=== PATIENT | female | born 1995 | race Caucasian/White ===

== ENCOUNTER 2018-01-09 22:15 | Observation (INO) ==
[2018-01-09] MEDS ORDERED: hydrOXYzine pamoate 25 MG CAPSULE PO PRN (23:06)
[2018-01-09 23:18] LABS: Basophils % 0.3 %; Eosinophils # 0.2 K/mcL (0.0-0.6); Eosinophils % 2.1 %; Hemoglobin 11.7 g/dL (11.5-15.4); Immature Granulocytes % 1.8 % (0-4); Lymphocytes # 1.8 K/mcL (0.6-4.6); Lymphocytes % 19.1 %; Mean Corpuscular HGB Conc 33.4 g/dL (31.6-35.5); Mean Corpuscular Hemoglobin 30.2 pg (28.0-33.3); Mean Corpuscular Volume 90.2 fL (83.0-100.0); Mean Platelet Volume 9.4 fL (9.4-12.4); Monocytes # 0.9 K/mcL (0.0-1.3); Monocytes % 9.6 %; Neutrophils # 6.4 K/mcL (1.6-8.9); Platelet Count 289 K/mcL (140-400); Red Blood Count 3.88 M/mcL (3.82-4.97); Red Cell Distribution Width 12.5 % (11.5-14.5); Segmented Neutrophils % 67.1 %
[2018-01-09 23:20] LABS: Bilirubin,Urine Negative (Negative); Blood,Urine Negative (Negative); Clarity,Urine Clear (Clear); Color,Urine Yellow (Yellow); Glucose,Urine (UA) Normal (Normal); Ketones,Urine Negative (Negative); Leukocyte Esterase,Urine Negative (Negative); Nitrite,Urine Negative (Negative); Protein,Urine Negative (Neg-Trace); Specific Gravity,Urine < 1.005 (1.010-1.025); Urobilinogen,Urine Normal (Normal)
--- NOTE | 2018-01-09 23:30 | OB/GYN Progress Note ---
Date of Encounter: 01/09/18 Time of Encounter: 23:20 - Assessment and Plan (1) 33 weeks gestation of Current Visit: Yes Status: Acute (2) uterine contractions in third trimester, antepartum Current Visit: Yes Status: Acute SVE closed (3) Hypertension affecting in third trimester Current Visit: Yes Status: Acute Pt reporting significant anxiety at this time because of the pain she was having earlier. Will try vistaril for anxiety while awaiting PIH lab results. Will restart labetalol if needed. Subjective - Subjective Principal diagnosis: cramping Interval history: 22 year-old presenting at 33 weeks with c/o cramping pain in left lower abdomen. She reports her abdomen gets hard when she has the pain. She admits to intercourse yesterday. No leaking or bleeding. Good FM. She has a history of chronic HTN which has been well controlled without medication during this . She also admits a history of anxiety and states she is feeling anxious now. She denies HILLMAN, vision changes, or RUQ pain. Antepartum ROS: movement normal, contractions, no loss of fluid, no vaginal bleeding Objective - Vital Signs Vital Signs: Intake and Output 01/09/18 01/09/18 01/09/18 07:59 15:59 23:59 Other: Weight 86.5 kg Patient Weight 01/09/18 23:59 Weight 86.5 kg - Exam FHR: category 1 FHR comments: NST reactive Abdomen: Present: soft, gravid Uterus: Present: normal. Absent: tenderness Cervical dilation: 0 station: high
[2018-01-09 23:45] LABS: Alanine Aminotransferase 26 Units/L (7-52); Aspartate Amino Transferase 20 Units/L (13-39); BUN/Creatinine Ratio 12 (6-26); Blood Urea Nitrogen 5 mg/dL (6-20); Lactate Dehydrogenase 154 Units/L (140-271); Uric Acid 4.3 mg/dL (2.3-7.6); eGFR For African Americans > 60 (> 60); eGFR For Non-African Americans > 60 (> 60)
[2018-01-09 23:45] LABS: Creatinine,Urine 14 mg/dL
[2018-01-09] MEDS ORDERED: *HR* Labetalol 20 MG/4 ML SYRINGE IVP ONE (23:52)
== END 2018-01-10 07:28 | disposition home or self-care (01) ==
LOC: 1NENULAB
PROVIDERS: ADMIT Registered Nurse; ATTEND Registered Nurse

== ENCOUNTER 2018-01-27 21:49 | Observation (INO) ==
[2018-01-27 22:44] LABS: Alanine Aminotransferase 19 Units/L (7-52); Aspartate Amino Transferase 17 Units/L (13-39); BUN/Creatinine Ratio 12 (6-26); Blood Urea Nitrogen 6 mg/dL (6-20); Creatinine,Urine 26 mg/dL; Lactate Dehydrogenase 158 Units/L (140-271); Protein/Creatinine Ratio,Urine 0.15 mg/mg (0.00-0.20); Uric Acid 4.7 mg/dL (2.3-7.6); eGFR For African Americans > 60 (> 60); eGFR For Non-African Americans > 60 (> 60)
[2018-01-27 22:54] LABS: Basophils # 0.1 K/mcL (0.0-0.2); Basophils % 0.4 %; Eosinophils # 0.3 K/mcL (0.0-0.6); Hematocrit 36.3 % (35.3-44.9); Hemoglobin 12.4 g/dL (11.5-15.4); Immature Granulocytes % 2.2 % (0-4); Lymphocytes # 2.2 K/mcL (0.6-4.6); Lymphocytes % 13.3 %; Mean Corpuscular HGB Conc 34.2 g/dL (31.6-35.5); Mean Corpuscular Hemoglobin 30.7 pg (28.0-33.3); Mean Corpuscular Volume 89.9 fL (83.0-100.0); Mean Platelet Volume 10.1 fL (9.4-12.4); Monocytes # 1.4 K/mcL (0.0-1.3); Monocytes % 8.2 %; Neutrophils # 12.2 K/mcL (1.6-8.9); Platelet Count 313 K/mcL (140-400); Red Blood Count 4.04 M/mcL (3.82-4.97); Red Cell Distribution Width 12.9 % (11.5-14.5); Segmented Neutrophils % 73.9 %
--- NOTE | 2018-01-27 23:28 | Discharge Summary ---
Date of Encounter: 01/27/18 Time of Encounter: 23:27 - Discharge Diagnosis (1) 36 weeks gestation of Priority: Primary Status: Acute Comments: admitted for observation (2) Hypertension affecting in third trimester Priority: Secondary Status: Acute Comments: PIH labs WNL BPs WNL (3) NST (non-stress test) reactive on surveillance Priority: Secondary Status: Acute Comments: baseline 130 bpm moderate variability +15x15 accels no decels noted. - Discharge Medications Home Medications: [id number]/FA/Omega3/Dha/Fish Oil [ Gummies] 1 each PO 12/04/17 [History] Ondansetron HCl [Zofran] 1 tab PO DAILY 01/09/18 [History] HydrOXYzine Pamoate [Vistaril] 50 mg PO DAILY PRN #30 capsule 01/10/18 [Rx] Allergies/Adverse Reactions: 3 Allergy/AdvReac Type Severity Reaction Status Date / Time cefuroxime [From Ceftin] Allergy Rash Verified 10/29/17 19:08 Penicillins Allergy Rash Verified 10/29/17 19:08 Data Procedures and tests throughout hospitalization: Laboratory Tests 01/27/18 01/27/18 01/27/18 22:00 22:00 22:00 WBC 16.5 H RBC 4.04 Hgb 12.4 Hct 36.3 MCV 89.9 MCH 30.7 MCHC 34.2 RDW 12.9 Plt Count 313 MPV 10.1 Immature Gran % 2.2 Seg Neutrophils % 73.9 Lymphocytes % 13.3 Monocytes % 8.2 Eosinophils % 2.0 Basophils % 0.4 Neutrophils # 12.2 H Lymphocytes # 2.2 Monocytes # 1.4 H Eosinophils # 0.3 Basophils # 0.1 BUN 6 Creatinine 0.51 L Est GFR ( Amer) > 60 Est GFR (Non-Af Amer) > 60 BUN/Creatinine Ratio 12 Uric Acid 4.7 AST 17 ALT 19 Lactate Dehydrogenase 158 Urine Creatinine 26 Protein/Creatinin Ratio 0.15 Urine Total Protein 4 Labs on day of discharge: Labs from last 24 hours 01/27/18 01/27/18 01/27/18 22:00 22:00 22:00 WBC 16.5 H RBC 4.04 Hgb 12.4 Hct 36.3 MCV 89.9 MCH 30.7 MCHC 34.2 RDW 12.9 Plt Count 313 MPV 10.1 Immature Gran % 2.2 Seg Neutrophils % 73.9 Lymphocytes % 13.3 Monocytes % 8.2 Eosinophils % 2.0 Basophils % 0.4 Neutrophils # 12.2 H Lymphocytes # 2.2 Monocytes # 1.4 H Eosinophils # 0.3 Basophils # 0.1 BUN 6 Creatinine 0.51 L Est GFR ( Amer) > 60 Est GFR (Non-Af Amer) > 60 BUN/Creatinine Ratio 12 Uric Acid 4.7 AST 17 ALT 19 Lactate Dehydrogenase 158 Urine Creatinine 26 Protein/Creatinin Ratio 0.15 Urine Total Protein 4 Date of admission: 01/27/18 21:49 Discharging clinician: Brook Casanova Anticipated date of discharge: 01/27/18 - Patient Status Disposition: Home, Self-Care Condition: Good Functional capacity at discharge: independent ambulation - Discharge Instructions Follow Up With: Beatrice Rodarte DO [Partnered Physician] - - Diet and Activity Activity: increase activity as tolerated Diet: regular diet Hospital Course FRUIT FARMWORKER Hospital course: Patient is a 22 y/o @ 36w2d presents to labor and delivery with complaints of elevated BPs at home. Patient denies any headache, visual disturbances or epigastric pain. Patient reports +FM, denies Contractions or leaking of fluid. FHR 130 bpm moderate variability +15x15 accels no decels noted.. Irregular contractions noted. Cat. 1 tracing. Time Attestation: Total time spent providing and/or coordinating discharge services: Time Spent: Less than 30 minutes Exam - Constitutional General appearance IM: A&O X 3, pleasant, answers questions appropriately - Respiratory Respiratory exam: Present: CTAB - Cardiovascular Cardiovascular exam IM: Present: RRR, +S1, +S2 - Extremities Exam Extremities exam IM: Present: full ROM, normal capillary refill - Neurological Exam Neurological exam: alert, oriented X3, reflexes normal - VTE Reasons for not Prescribing Prophylaxis: Treatment not Indicated - Low risk for VTE
[2018-01-28 00:39] LABS: Amphetamine Screen,Urine Negative ng/mL (Cutoff=1000); Barbiturate Screen,Urine Negative ng/mL (Cutoff=200); Benzodiazepines Screen,Urine Negative ng/mL (Cutoff=200); Cannabinoid Screen,Urine Negative ng/mL (Cutoff = 50); Cocaine Screen,Urine Negative ng/mL (Cutoff= 300); Opiate Screen,Urine Negative ng/mL (Cutoff=300); Phencyclidine Screen,Urine Negative ng/mL (Cutoff=25)
== END 2018-01-27 23:35 | disposition home or self-care (01) ==
LOC: 1NENULAB
PROVIDERS: ADMIT Student in an Organized Health Care Education/Training Program; ATTEND Student in an Organized Health Care Education/Training Program

== ENCOUNTER 2018-02-02 17:32 | Inpatient (IN) ==
[2018-02-02 16:39] LABS: Basophils % 0.3 %; Eosinophils # 0.3 K/mcL (0.0-0.6); Eosinophils % 2.2 %; Hematocrit 39.8 % (35.3-44.9); Hemoglobin 13.1 g/dL (11.5-15.4); Immature Granulocytes % 1.6 % (0-4); Lymphocytes # 1.6 K/mcL (0.6-4.6); Lymphocytes % 12.1 %; Mean Corpuscular HGB Conc 32.9 g/dL (31.6-35.5); Mean Corpuscular Hemoglobin 30.2 pg (28.0-33.3); Mean Corpuscular Volume 91.7 fL (83.0-100.0); Monocytes # 0.8 K/mcL (0.0-1.3); Monocytes % 6.3 %; Neutrophils # 10.1 K/mcL (1.6-8.9); Nucleated Red Blood Cells 0.3 /100 WBC (0); Platelet Count 282 K/mcL (140-400); Red Blood Count 4.34 M/mcL (3.82-4.97); Red Cell Distribution Width 13.2 % (11.5-14.5); Segmented Neutrophils % 77.5 %
--- NOTE | 2018-02-02 17:01 | OB/GYN History & Physical ---
Date of Encounter: 02/02/18 Time of Encounter: 17:40 Assessment and Plan (1) Chronic hypertension during Current visit: Yes Status: Acute Gestational HTN GBS negative Admit to LDR for Pitocin induction of labor Current exam not indicative for seizure prophylaxis at this time, will monitor for signs/symptoms of Pre-eclampsia POC discussed with Dr. Rodarte, Dr. Rodarte agreeable to POC (2) 37 weeks gestation of Current visit: Yes Status: Acute History of Present Illness Chief complaint: Increased BP in office HPI: Ms. Kirkpatrick is a 22 year old at 37 weeks and 1 day gestation that presents to Labor and Delivery for evaluation of BP 180/110 in office today. Denies HILLMAN, visual disturbance and epigastric pain. Reports good movement, no vaginal bleeding, no leaking of fluid. POC discussed, supportive at bedside. Labs: A positive Antibody screen negative GBS negative HBsAg negative HIV negative Rubella immune Varicella immune GC/Chlamydia negative T. pallidium negative Past Med Surg Social Fam HX - Past Medical History Medical history: hypertension Psychiatric history: no psych history - Past Surgical History Surgical History: no surgical history - Social History Smoking Status: Never smoker Smokeless Tobacco Status: No Alcohol use: none Drug use: none - Family History Father Adopted: No Family Member Ethnicity: Non- Living Status: Still Living Hx Family Cardiac Disorders: Yes Hx Family Respiratory Disorders: No Hx Family Cancer: No Hx Family GI Disorders: No Hx Family Genitourinary Disorders: No Hx Family Endocrine Disorder: Yes Hx Family Neuromuscular Disorders: No Hx Family Neurologic Disorders: No Hx Family HEENT Disorders: No Hx Family Autoimmune Disorders: No Obstetrical History - Pregnancies : 1 Medications and Allergies [id number]/FA/Omega3/Dha/Fish Oil [ Gummies] 1 each PO 12/04/17 [History] Ondansetron HCl [Zofran] 1 tab PO DAILY 01/09/18 [History] HydrOXYzine Pamoate [Vistaril] 50 mg PO DAILY PRN #30 capsule 01/10/18 [Rx] 3 Allergy/AdvReac Type Severity Reaction Status Date / Time cefuroxime [From Ceftin] Allergy Rash Verified 10/29/17 19:08 Penicillins Allergy Rash Verified 10/29/17 19:08 Exam - Constitutional Constitutional: well developed, well nourished, no acute distress, average body habitus - HEENT HEENT: Normocephaly - Neck Neck exam: full ROM - Lungs Respiratory exam: CTAB - Cardiovascular Cardiovascular exam: RRR - Abdomen Abdomen: Present: bowel sounds normal - Extremities Extremities exam: full ROM, pedal edema, radial pulses palpable and symmetrical Deep Tendon Reflex Grade: 3+ Normal But Brisk - Cervix Dilation: 1 (per Dr. Rodarte in office today) Effacement: 90 Station: 0 - Uterus Uterus exam: Present: normal size, normal contour Results Result Diagrams: 02/02/18 16:18 02/02/18 16:18 Abnormal lab results WBC 13.1 K/mcL (4.3-11.1) H 02/02/18 16:18 Neutrophils # 10.1 K/mcL (1.6-8.9) H 02/02/18 16:18 Nucleated RBCs/100 WBC 0.3 /100 WBC (0) H 02/02/18 16:18 All other labs normal. - VTE Reasons for not Prescribing Prophylaxis: Treatment not Indicated - Low risk for VTE
[2018-02-02 17:03] LABS: Amphetamine Screen,Urine Negative ng/mL (Cutoff=1000); Barbiturate Screen,Urine Negative ng/mL (Cutoff=200); Benzodiazepines Screen,Urine Negative ng/mL (Cutoff=200); Cannabinoid Screen,Urine Negative ng/mL (Cutoff = 50); Cocaine Screen,Urine Negative ng/mL (Cutoff= 300); Opiate Screen,Urine Negative ng/mL (Cutoff=300); Phencyclidine Screen,Urine Negative ng/mL (Cutoff=25); Protein/Creatinine Ratio,Urine 0.17 mg/mg (0.00-0.20)
[2018-02-02 17:29] LABS: Alanine Aminotransferase 18 Units/L (7-52); Aspartate Amino Transferase 23 Units/L (13-39); BUN/Creatinine Ratio 17 (6-26); Blood Urea Nitrogen 9 mg/dL (6-20); Lactate Dehydrogenase 270 Units/L (140-271); Uric Acid 5.5 mg/dL (2.3-7.6); eGFR For African Americans > 60 (> 60); eGFR For Non-African Americans > 60 (> 60)
[~2018-02-02 17:32] MED LIST: *HR* Labetalol 20 MG/4 ML SYRINGE IVP PRN; *HR* Nalbuphine 10 MG/ML AMPUL IVP PRN; Famotidine 20 MG/2 ML VIAL IVP PRN; Lidocaine 1% 20 ML MDV INFILT PRN; Metoclopramide 10 MG/2 ML VIAL IVP PRN; Naloxone 0.4 MG/ML INJ IVP PRN; Ondansetron 4 MG/2 ML VIAL IVP PRN
[2018-02-02] MEDS ORDERED: Oxytocin 20 units/ LR 1000 mL 20 UNIT/1,000 ML BAG IVC SCH (17:45)
--- NOTE | 2018-02-02 17:55 | Anesthesia Evaluation PreOp ---
Date of Encounter: 02/02/18 Time of Encounter: 17:53 - Past History Planned Operation: vaginal del, G1 induction d/t HTN Cardiac History: HTN (chronic, in office 180/110, denies HILLMAN, visual dis, or abd pain. no meds, occ syncope episodes - none for years, no work up done. 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 HX Other Medical History: Denies Any Significant HX Anesthesia History: No Prior Anesthetic Complications, Past Anesthesia Alcohol Use: none Drug use: none Medications and Allergies [id number]/FA/Omega3/Dha/Fish Oil [ Gummies] 1 each PO 12/04/17 [History] Ondansetron HCl [Zofran] 1 tab PO DAILY 01/09/18 [History] HydrOXYzine Pamoate [Vistaril] 50 mg PO DAILY PRN #30 capsule 01/10/18 [Rx] 3 Allergy/AdvReac Type Severity Reaction Status Date / Time cefuroxime [From Ceftin] Allergy Rash Verified 10/29/17 19:08 Penicillins Allergy Rash Verified 10/29/17 19:08 Anesthesia Results - Labs 02/02/18 16:18 02/02/18 16:18 Anesthesia Exam - HEENT Pupil (Motor): Pupils equal Mallampati: III Teeth: Normal Oral Opening: Greater than 3 - WINDING INSPECTOR LOC: Oriented WINDING INSPECTOR Motor: Normal RUE, Normal LUE, Normal RLE, Normal LLE, Normal Face WINDING INSPECTOR Sensory: Normal: RUE, LUE, RLE, LLE, Face - Cardiac Rhythm: Regular Murmur: None - Pulmonary Breath Sounds: bilateral Clear Respiratory Effort: Symmetrical Anesthesia Assess/Plan ASA Score: 2 Modified [employer] Scale for Level of Consciousness: Cooperative, oriented, and tranquil Anesthetic Plan: General, Regional Monitoring Plan: Standard Monitors Recovery Plan: PACU
[2018-02-02] MEDS ORDERED: Epidural Premix (fent/bupiv) 110 ML EP SCH (18:00)
[2018-02-02] MEDS: Ringers Solution, Lactated 1,000 ML IVC SCH (18:07)
[2018-02-03] MEDS: Ringers Solution, Lactated 1,000 ML IVC SCH (00:39)
[2018-02-03] MEDS ORDERED: Epidural Premix (fent/bupiv) 110 ML EP ONE ×2 (09:42→15:08)
--- NOTE | 2018-02-03 10:02 | OB Labor Progress Note ---
Date of Encounter: 02/03/18 Time of Encounter: 09:25 Labor Progress Note - Subjective Subjective: Patient is bed and reports pain is getting worse. Discussed POC with patient. Patient denies any questions or concerns. - Cervix Cervix: 3/90/0 - Heart Tones Heart Tones: 120 bpm moderate amount of variability +15x15 accels no decels noted. Cat 1 tracing - [place]: 2-4 min apart - Interventions Interventions: SVE - Plan Plan: Stop Pitocin at this time Patient to get Epidural for pain management AROM and IUPC then reevaluated IOL medication
--- NOTE | 2018-02-03 10:10 | Anesthesia Procedures ---
Date of Encounter: 02/03/18 Time of Encounter: 10:08 Procedures: Anesthesia - Epidural/Spinal Patient ID/Chart reviewed: Yes Patient examined: Yes OB Eval: Gestational age: 37.1 OB Eval: : 1 OB Eval: Hx Para: 0 OB Eval: Dilated at (cm): 3 OB Eval: Contractions: Non-stressed pattern Consent Obtained: Yes Supplemental Oxygen: None/Room Air Site Prep: Aseptic Technique, Sterile prep and drape, Povidone-Iodine 1% Patient position: upright Local Anesthetic: Lidocaine 1% Amount of Local Anesthetic used: 3 Touhy Needle Gauge: 18 Touhy Needle Depth (cm): 9 Catheter Depth at Skin (cm): 20 Test Dose (1.5% Lido + Epi): Volume given (mls): 5 Test Dose Result: Negative Loading Dose: Other: 10mls of epidural pharm bag premix solution Loading Dose Administered: Thru Catheter Infusion Med: 0.125% Bupivacaine w/ 2 mcg/ml Fentanyl Infusion Rate (mls/hr): 16 (0nxj04mgc pcea) Catheter Secured in Place: Tegaderm, Tape Interspace Used: L4-L5 Loss of Resistance (KOMAL): Yes Blood: No CSF: No Paresthesia: No Procedure: pt tolerated procedure well. no complications. vss. fhr stable. see nursing notes for complete vitals. cath 0952 test 0953 bolus 0958
--- NOTE | 2018-02-03 10:41 | OB Labor Progress Note ---
Date of Encounter: 02/03/18 Time of Encounter: 10:39 Labor Progress Note - Subjective Subjective: Patient resting comfortably with epidural in place. - Cervix Cervix: 4/90/0 - Heart Tones Heart Tones: 120 bpm moderate amount of variability +15x15 accels no decels noted. Cat. 1 tracing - [place]: Irregular - Interventions Interventions: SVE, AROM moderate amount of clear fluid. IUPC placed without difficulty. Patient tolerated well. - Plan Plan: Restart Pitocin Continue labor management
--- NOTE | 2018-02-03 13:12 | OB Labor Progress Note ---
Date of Encounter: 02/03/18 Time of Encounter: 13:11 Labor Progress Note - Subjective Subjective: Patient resting comfortably with epidural in place. - Cervix Cervix: 5/100/0 - Heart Tones Heart Tones: 120 bpm moderate variability +15x15 accels no decels noted. Cat. 1 tracing - [place]: 3-4 min apart - Interventions Interventions: SVE. Repositioned patient - Plan Plan: Continue labor management.
--- NOTE | 2018-02-03 18:12 | OB/GYN Procedure Note ---
Delivery - Delivery Date: 02/03/18 Provider: Brook Casanova Delivery induction: AROM, oxytocin Delivery monitor: external FHT, external uterine, internal uterine Anesthesia: epidural Estimated Blood Loss: 300 - Infant (s) Infant A Infant Delivery Date: 02/03/18 Infant Delivery Time: 17:20 Presentation: vertex Position: JUDY Route of delivery: Gender: Female Viability: Viable Pounds: 6 Ounces: 9 Weight Gram: 2985 kg at 1 minute: 8 at 5 mins: 9 Shoulder Dystocia: not encountered Specimens collected: cord blood Placenta: spontaneous, uterine exploration Cord: 3 umbilical vessels - Repair Episiotomy: none Laceration Description: Perineal - 1st Degree, Labial (right labial) - Complications Delivery complications: none - Disposition Mom disposition: stable in LDR [place] disposition: stable in LDR - Comments Comments: Called to LDR patient complete and ready to push. Patient placed in stirrups and prepped for vaginal delivery. Under maternal effort patient spontaneously delivered a viable female over a first degree perineal laceration. No nuchal cord, no meconium or shoulder dystocia encountered. placed on maternal abdomen. A right labial was repaired with 4-0 monocryl. A first degree perineal laceration repaired with 3-0 vicryl. Cord was clamped and cut after pulsation ceased. Placenta delivered spontaneously and intact. All counts correct. Pericare provided. Both mother and infant stable in LDR for 2 hour recovery.
[2018-02-03] MEDS ORDERED: Acetaminophen 325 MG TABLET PO PRN (19:37)
[2018-02-03] MEDS ORDERED: Measles/Mumps/Rubella Vacc 0.5 ML VIAL SQ PRN (19:37)
[2018-02-03] MEDS ORDERED: *HR* HYDROcodone/Acet 5/325 mg TABLET PO PRN (19:37)
[2018-02-03] MEDS ORDERED: Oxytocin 20 units/ LR 1000 mL 20 UNIT/1,000 ML BAG IVC SCH (19:37)
[2018-02-03] MEDS ORDERED: Benzocaine/Menthol 56 GM AEROSOL SPRAY TP PRN (19:37)
[2018-02-03] MEDS ORDERED: Lanolin 7 G OINT...G. TP PRN (19:37)
[2018-02-03] MEDS: Ibuprofen 600 MG TABLET PO PRN (19:55)
[2018-02-04 04:29] LABS: Basophils % 0.3 %; Eosinophils # 0.2 K/mcL (0.0-0.6); Eosinophils % 1.2 %; Hematocrit 28.4 % (35.3-44.9); Immature Granulocytes % 0.9 % (0-4); Lymphocytes # 1.8 K/mcL (0.6-4.6); Lymphocytes % 11.9 %; Mean Corpuscular HGB Conc 34.2 g/dL (31.6-35.5); Mean Corpuscular Hemoglobin 30.7 pg (28.0-33.3); Mean Corpuscular Volume 89.9 fL (83.0-100.0); Mean Platelet Volume 10.1 fL (9.4-12.4); Monocytes # 1.3 K/mcL (0.0-1.3); Neutrophils # 11.3 K/mcL (1.6-8.9); Platelet Count 222 K/mcL (140-400); Red Blood Count 3.16 M/mcL (3.82-4.97); Red Cell Distribution Width 13.2 % (11.5-14.5); Segmented Neutrophils % 76.7 %
[2018-02-04 04:35] LABS: Hemoglobin 9.7 g/dL (11.5-15.4)
[2018-02-04 04:40] LABS: Alanine Aminotransferase 13 Units/L (7-52); Aspartate Amino Transferase 21 Units/L (13-39); BUN/Creatinine Ratio 12 (6-26); Blood Urea Nitrogen 7 mg/dL (6-20); Lactate Dehydrogenase 225 Units/L (140-271); Uric Acid 6.6 mg/dL (2.3-7.6); eGFR For African Americans > 60 (> 60); eGFR For Non-African Americans > 60 (> 60)
[2018-02-04] MEDS: Ibuprofen 600 MG TABLET PO PRN ×2 (08:46→15:24)
[2018-02-04 08:59] VITALS: BP 132/86
[2018-02-04] MEDS ORDERED: Prenatal Vit/FA 1 EACH TABLET PO SCH (09:00)
--- NOTE | 2018-02-04 09:22 | Discharge Summary ---
Date of Encounter: 02/04/18 Time of Encounter: 09:13 - Discharge Diagnosis (1) Vaginal delivery Priority: Primary Status: Acute Comments: Pt meeting milestones. Discharge home today. (2) Hypertension affecting in third trimester Priority: Secondary Status: Acute Comments: BP normal - Discharge Medications Prescriptions: Ibuprofen [Motrin] 600 mg PO Q6HR PRN #30 tablet PRN Reason: Cramping Docusate [Colace] 100 mg PO BID #60 capsule Home Medications: Benzocaine/Menthol [place] [Dermoplast [place]] 1 appl TP QID PRN aerosol 02/04/18 [Rx] Docusate [Colace] 100 mg PO BID #60 capsule 02/04/18 [Rx] Ibuprofen [Motrin] 600 mg PO Q6HR PRN #30 tablet 02/04/18 [Rx] Lanolin [Lansinoh] 1 appl TP TID PRN oint...g. 02/04/18 [Rx] Vit/FA 1 each PO DAILY tablet 02/04/18 [Rx] Allergies/Adverse Reactions: 3 Allergy/AdvReac Type Severity Reaction Status Date / Time cefuroxime [From Ceftin] Allergy Rash Verified 10/29/17 19:08 Penicillins Allergy Rash Verified 10/29/17 19:08 Data Procedures and tests throughout hospitalization: Laboratory Tests 02/02/18 02/02/18 02/02/18 16:18 16:18 16:18 WBC 13.1 H RBC 4.34 Hgb 13.1 Hct 39.8 MCV 91.7 MCH 30.2 MCHC 32.9 RDW 13.2 Plt Count 282 MPV 10.0 Immature Gran % 1.6 Seg Neutrophils % 77.5 Lymphocytes % 12.1 Monocytes % 6.3 Eosinophils % 2.2 Basophils % 0.3 Neutrophils # 10.1 H Lymphocytes # 1.6 Monocytes # 0.8 Eosinophils # 0.3 Basophils # 0.0 Nucleated RBCs/100 WBC 0.3 H BUN Creatinine Est GFR ( Amer) Est GFR (Non-Af Amer) BUN/Creatinine Ratio Uric Acid AST ALT Lactate Dehydrogenase Urine Creatinine 71 Protein/Creatinin Ratio 0.17 Urine Total Protein 12 Urine Opiates Screen Negative Ur Barbiturates Screen Negative Ur Phencyclidine Scrn Negative Ur Amphetamines Screen Negative U Benzodiazepines Scrn Negative Urine Cocaine Screen Negative U Marijuana (THC) Screen Negative 02/02/18 02/04/18 02/04/18 16:18 04:04 04:04 WBC 14.7 H RBC 3.16 L Hgb 9.7 L D Hct 28.4 L MCV 89.9 MCH 30.7 MCHC 34.2 RDW 13.2 Plt Count 222 MPV 10.1 Immature Gran % 0.9 Seg Neutrophils % 76.7 Lymphocytes % 11.9 Monocytes % 9.0 Eosinophils % 1.2 Basophils % 0.3 Neutrophils # 11.3 H Lymphocytes # 1.8 Monocytes # 1.3 Eosinophils # 0.2 Basophils # 0.0 Nucleated RBCs/100 WBC BUN 9 7 Creatinine 0.53 L 0.60 Est GFR ( Amer) > 60 > 60 Est GFR (Non-Af Amer) > 60 > 60 BUN/Creatinine Ratio 17 12 Uric Acid 5.5 6.6 AST 23 21 ALT 18 13 Lactate Dehydrogenase 270 225 Urine Creatinine Protein/Creatinin Ratio Urine Total Protein Urine Opiates Screen Ur Barbiturates Screen Ur Phencyclidine Scrn Ur Amphetamines Screen U Benzodiazepines Scrn Urine Cocaine Screen U Marijuana (THC) Screen Labs on day of discharge: Labs from last 24 hours 02/04/18 02/04/18 04:04 04:04 WBC 14.7 H RBC 3.16 L Hgb 9.7 L D Hct 28.4 L MCV 89.9 MCH 30.7 MCHC 34.2 RDW 13.2 Plt Count 222 MPV 10.1 Immature Gran % 0.9 Seg Neutrophils % 76.7 Lymphocytes % 11.9 Monocytes % 9.0 Eosinophils % 1.2 Basophils % 0.3 Neutrophils # 11.3 H Lymphocytes # 1.8 Monocytes # 1.3 Eosinophils # 0.2 Basophils # 0.0 BUN 7 Creatinine 0.60 Est GFR ( Amer) > 60 Est GFR (Non-Af Amer) > 60 BUN/Creatinine Ratio 12 Uric Acid 6.6 AST 21 ALT 13 Lactate Dehydrogenase 225 Date of admission: 02/02/18 17:32 Primary care physician: Stuart Avila DO Consults: 02/03/18 19:37 Consult to Tourist Information Officer [CONS] Routine Comment: Vaginal delivery, consult needed Discharging clinician: Vianey Weber Anticipated date of discharge: 02/04/18 - Patient Status Disposition: Home, Self-Care Condition: Good Functional capacity at discharge: independent ambulation Overall status at discharge: patient is progressing back to baseline - Discharge Instructions Follow Up With: Stuart Avila DO [Primary Care Provider] - Beatrice Rodarte DO [Partnered Physician] - - Diet and Activity Activity: increase activity as tolerated Diet: regular diet Hospital Course Reason for admission: induction of labor Delivery: Episiotomy: none Laceration: 1st degree Other procedures: none complications: none Discharge diagnosis: IUP at term delivered baby: female Hospital course: - Delivery Date: 02/03/18 Provider: Brook Casanova Delivery induction: AROM, oxytocin Delivery monitor: external FHT, external uterine, internal uterine Anesthesia: epidural Estimated Blood Loss: 300 - Infant (s) Infant A Infant Delivery Date: 02/03/18 Infant Delivery Time: 17:20 Presentation: vertex Position: JUDY Route of delivery: Gender: Female Viability: Viable Pounds: 6 Ounces: 9 Weight Gram: 2985 kg at 1 minute: 8 at 5 mins: 9 Shoulder Dystocia: not encountered Specimens collected: cord blood Placenta: spontaneous, uterine exploration Cord: 3 umbilical vessels - Repair Episiotomy: none Laceration Description: Perineal - 1st Degree, Labial (right labial) - Complications Delivery complications: none - Disposition Mom disposition: home PPD#1 disposition: home with mother, bottle feeding Time Attestation: Total time spent providing and/or coordinating discharge services: Time Spent: Less than 30 minutes Exam - Constitutional Vitals: Temp Pulse Resp BP Pulse Ox 98.2 F 84 16 132/86 99 02/04/18 08:58 02/04/18 08:58 02/04/18 08:58 02/04/18 08:58 02/04/18 08:58 General appearance IM: A&O X 3 - Respiratory Respiratory exam: Present: CTAB - Cardiovascular Cardiovascular exam IM: Present: RRR, +S1, +S2 - GI/Abdominal GI/Abdominal exam IM: soft - Rectal Rectal exam: deferred - Uterine Tone: Firm Uterus Position: 2 Fingers Below Umbilicus - Extremities Exam Extremities exam IM: Present: pedal edema (2+ bilaterally, no ) - Neurological Exam Neurological exam: normal gait, oriented X3 - Psychiatric Additional comments: reports good mood
== END 2018-02-04 19:19 | disposition home or self-care (01) | DRG 774 ==
LOC: 1NENULAB → 1NENUOBS 02-03 20:41
PROVIDERS: ADMIT Obstetrics & Gynecology; ATTEND Obstetrics & Gynecology

== ENCOUNTER → 2019-10-02 09:56 | Observation (INO) ==
[2019-10-01 12:46] LABS: Bilirubin,Urine Negative (Negative); Blood,Urine Negative (Negative); Clarity,Urine Clear (Clear); Color,Urine Yellow (Yellow); Glucose,Urine (UA) Normal (Normal); Ketones,Urine Negative (Negative); Leukocyte Esterase,Urine Negative (Negative); Nitrite,Urine Negative (Negative); Protein,Urine Negative (Neg-Trace); Specific Gravity,Urine 1.007 (1.010-1.025); Urobilinogen,Urine Normal (Normal)
[2019-10-01 12:54] LABS: Amphetamine Screen,Urine Negative ng/mL (Cutoff=1000); Barbiturate Screen,Urine Negative ng/mL (Cutoff=200); Benzodiazepines Screen,Urine Negative ng/mL (Cutoff=200); Cannabinoid Screen,Urine Negative ng/mL (Cutoff = 50); Cocaine Screen,Urine Negative ng/mL (Cutoff= 300); Opiate Screen,Urine Negative ng/mL (Cutoff=300); Phencyclidine Screen,Urine Negative ng/mL (Cutoff=25)
[2019-10-01 18:36] LABS: Basophils % 0.4 %; Eosinophils # 0.2 K/mcL (0.0-0.6); Eosinophils % 1.9 %; Hematocrit 37.9 % (35.3-44.9); Hemoglobin 12.7 g/dL (11.5-15.4); Lymphocytes # 2.3 K/mcL (0.6-4.6); Lymphocytes % 20.3 %; Mean Corpuscular HGB Conc 33.5 g/dL (31.6-35.5); Mean Corpuscular Hemoglobin 30.7 pg (28.0-33.3); Mean Corpuscular Volume 91.5 fL (83.0-100.0); Mean Platelet Volume 9.6 fL (9.4-12.4); Monocytes # 0.9 K/mcL (0.0-1.3); Monocytes % 7.7 %; Neutrophils # 7.6 K/mcL (1.6-8.9); Platelet Count 264 K/mcL (140-400); Red Blood Count 4.14 M/mcL (3.82-4.97); Red Cell Distribution Width 12.8 % (11.5-14.5); Segmented Neutrophils % 67.7 %; White Blood Count 11.2 K/mcL (4.3-11.1)
[2019-10-01 19:49] LABS: Alanine Aminotransferase 16 Units/L (7-52); Aspartate Amino Transferase 17 Units/L (13-39); BUN/Creatinine Ratio 12 (6-26); Blood Urea Nitrogen 5 mg/dL (6-20); Lactate Dehydrogenase 198 Units/L (140-271); Uric Acid 4.6 mg/dL (2.3-7.6); eGFR For African Americans > 60 (> 60); eGFR For Non-African Americans > 60 (> 60)
[~2019-10-02 09:56] MED LIST changes: -*HR* Labetalol 20 MG/4 ML SYRINGE IVP PRN; -*HR* Nalbuphine 10 MG/ML AMPUL IVP PRN; +Betamethasone Acet/SodPhos 30 MG/5 ML VIAL IM SCH; +Epidural Premix (fent/bupiv) 110 ML EP SCH; -Famotidine 20 MG/2 ML VIAL IVP PRN; -Lidocaine 1% 20 ML MDV INFILT PRN; -Metoclopramide 10 MG/2 ML VIAL IVP PRN; +NIFEdipine 10 MG CAPSULE PO ONE; -Naloxone 0.4 MG/ML INJ IVP PRN; -Ondansetron 4 MG/2 ML VIAL IVP PRN; +Ringers Solution, Lactated 1,000 ML IVC ONE; +Ringers Solution, Lactated 1,000 ML IVC SCH; +Ringers Solution, Lactated 1,000 ML ONE
== END | disposition home or self-care (01) ==
LOC: 1NENULAB
PROVIDERS: ADMIT Advanced Practice Midwife; ATTEND Advanced Practice Midwife

== ENCOUNTER → 2019-10-06 18:16 | Observation (INO) ==
[2019-10-06 16:36] VITALS: BP 144/87
[2019-10-06 17:15] LABS: Basophils # 0.1 K/mcL (0.0-0.2); Basophils % 0.3 %; Eosinophils # 0.2 K/mcL (0.0-0.6); Eosinophils % 1.6 %; Hematocrit 37.6 % (35.3-44.9); Hemoglobin 12.8 g/dL (11.5-15.4); Immature Granulocytes % 3.6 % (0-4); Lymphocytes # 2.5 K/mcL (0.6-4.6); Lymphocytes % 16.8 %; Mean Corpuscular Hemoglobin 30.9 pg (28.0-33.3); Mean Corpuscular Volume 90.8 fL (83.0-100.0); Mean Platelet Volume 9.6 fL (9.4-12.4); Monocytes # 1.2 K/mcL (0.0-1.3); Monocytes % 8.3 %; Neutrophils # 10.1 K/mcL (1.6-8.9); Platelet Count 303 K/mcL (140-400); Red Blood Count 4.14 M/mcL (3.82-4.97); Red Cell Distribution Width 12.7 % (11.5-14.5); Segmented Neutrophils % 69.4 %; White Blood Count 14.6 K/mcL (4.3-11.1)
[2019-10-06 17:17] LABS: Bilirubin,Urine Negative (Negative); Blood,Urine Negative (Negative); Clarity,Urine Cloudy (Clear); Color,Urine Yellow (Yellow); Glucose,Urine (UA) Normal (Normal); Ketones,Urine Negative (Negative); Leukocyte Esterase,Urine Moderate (Negative); Nitrite,Urine Negative (Negative); Protein,Urine Trace mg/dL (Neg-Trace); Specific Gravity,Urine 1.027 (1.010-1.025); Urobilinogen,Urine Normal (Normal)
[2019-10-06 17:19] LABS: Bacteria,Urine Many per hpf (None-Few); Hyaline Casts,Urine Few per lpf (None-Few); Squamous Epithelial Cell,Urine Many per lpf (None-Few); WBC,Urine TNTC per hpf (0-3)
[2019-10-06 17:30] LABS: Protein/Creatinine Ratio,Urine 0.19 mg/mg (0.00-0.20)
[2019-10-06 17:38] LABS: Alanine Aminotransferase 16 Units/L (7-52); Aspartate Amino Transferase 14 Units/L (13-39); BUN/Creatinine Ratio 21 (6-26); Blood Urea Nitrogen 8 mg/dL (6-20); Lactate Dehydrogenase 159 Units/L (140-271); Uric Acid 4.2 mg/dL (2.3-7.6); eGFR For African Americans > 60 (> 60); eGFR For Non-African Americans > 60 (> 60)
== END | disposition home or self-care (01) ==
LOC: 1NENULAB
PROVIDERS: ADMIT Registered Nurse; ATTEND Registered Nurse

== ENCOUNTER → 2019-10-23 18:38 | Observation (INO) ==
[2019-10-23 17:15] LABS: Bilirubin,Urine Negative (Negative); Blood,Urine Negative (Negative); Clarity,Urine Cloudy (Clear); Color,Urine Yellow (Yellow); Glucose,Urine (UA) Normal (Normal); Ketones,Urine Negative (Negative); Leukocyte Esterase,Urine Trace (Negative); Nitrite,Urine Negative (Negative); Protein,Urine 30 mg/dL (Neg-Trace); Specific Gravity,Urine > 1.030 (1.010-1.025); Urobilinogen,Urine Normal (Normal)
[2019-10-23 17:25] LABS: Amphetamine Screen,Urine Negative ng/mL (Cutoff=1000); Barbiturate Screen,Urine Negative ng/mL (Cutoff=200); Benzodiazepines Screen,Urine Negative ng/mL (Cutoff=200); Cannabinoid Screen,Urine Negative ng/mL (Cutoff = 50); Cocaine Screen,Urine Negative ng/mL (Cutoff= 300); Opiate Screen,Urine Negative ng/mL (Cutoff=300); Phencyclidine Screen,Urine Negative ng/mL (Cutoff=25)
[2019-10-23 17:28] LABS: Bacteria,Urine Moderate per hpf (None-Few); RBC,Urine 0-3 per hpf (0-3)
[2019-10-23 17:29] LABS: Hyaline Casts,Urine None Seen per lpf (None-Few); Squamous Epithelial Cell,Urine Many per lpf (None-Few)
== END | disposition home or self-care (01) ==
LOC: 1NENULAB
PROVIDERS: ADMIT Advanced Practice Midwife; ATTEND Advanced Practice Midwife

== ENCOUNTER → 2019-10-27 22:16 | Observation (INO) ==
[2019-10-27 19:57] LABS: Bilirubin,Urine Negative (Negative); Blood,Urine Negative (Negative); Clarity,Urine Cloudy (Clear); Color,Urine Yellow (Yellow); Glucose,Urine (UA) Normal (Normal); Ketones,Urine Negative (Negative); Leukocyte Esterase,Urine Negative (Negative); Nitrite,Urine Negative (Negative); PH,Urine 6.5 pH Units (5.0-8.0); Protein,Urine Negative (Neg-Trace); Specific Gravity,Urine 1.024 (1.010-1.025); Urobilinogen,Urine Normal (Normal)
[2019-10-27 20:00] LABS: Bacteria,Urine Many per hpf (None-Few); Hyaline Casts,Urine None Seen per lpf (None-Few); RBC,Urine 0-3 per hpf (0-3); Squamous Epithelial Cell,Urine Many per lpf (None-Few)
[2019-10-27 20:08] LABS: Amphetamine Screen,Urine Negative ng/mL (Cutoff=1000); Barbiturate Screen,Urine Negative ng/mL (Cutoff=200); Benzodiazepines Screen,Urine Negative ng/mL (Cutoff=200); Cannabinoid Screen,Urine Negative ng/mL (Cutoff = 50); Cocaine Screen,Urine Negative ng/mL (Cutoff= 300); Opiate Screen,Urine Negative ng/mL (Cutoff=300); Phencyclidine Screen,Urine Negative ng/mL (Cutoff=25)
[2019-10-27 21:16] LABS: Basophils % 0.3 %; Eosinophils # 0.2 K/mcL (0.0-0.6); Eosinophils % 2.2 %; Hematocrit 34.7 % (35.3-44.9); Hemoglobin 11.5 g/dL (11.5-15.4); Immature Granulocytes % 1.5 % (0-4); Lymphocytes # 1.9 K/mcL (0.6-4.6); Lymphocytes % 20.1 %; Mean Corpuscular HGB Conc 33.1 g/dL (31.6-35.5); Mean Corpuscular Hemoglobin 30.2 pg (28.0-33.3); Mean Corpuscular Volume 91.1 fL (83.0-100.0); Mean Platelet Volume 9.7 fL (9.4-12.4); Monocytes # 0.8 K/mcL (0.0-1.3); Neutrophils # 6.5 K/mcL (1.6-8.9); Platelet Count 274 K/mcL (140-400); Red Blood Count 3.81 M/mcL (3.82-4.97); Segmented Neutrophils % 67.9 %; White Blood Count 9.6 K/mcL (4.3-11.1)
[2019-10-27 21:22] LABS: Creatinine,Urine 106 mg/dL; Protein/Creatinine Ratio,Urine 0.23 mg/mg (0.00-0.20)
[2019-10-27 21:38] LABS: Alanine Aminotransferase 13 Units/L (7-52); Aspartate Amino Transferase 12 Units/L (13-39); BUN/Creatinine Ratio 14 (6-26); Blood Urea Nitrogen 7 mg/dL (6-20); Lactate Dehydrogenase 140 Units/L (140-271); Uric Acid 4.2 mg/dL (2.3-7.6); eGFR For African Americans > 60 (> 60); eGFR For Non-African Americans > 60 (> 60)
== END | disposition home or self-care (01) ==
LOC: 1NENULAB
PROVIDERS: ADMIT Advanced Practice Midwife; ATTEND Advanced Practice Midwife

== ENCOUNTER → 2019-11-04 19:28 | Observation (INO) ==
[2019-11-04 16:33] LABS: Amphetamine Screen,Urine Negative ng/mL (Cutoff=1000); Barbiturate Screen,Urine Negative ng/mL (Cutoff=200); Benzodiazepines Screen,Urine Negative ng/mL (Cutoff=200); Cannabinoid Screen,Urine Negative ng/mL (Cutoff = 50); Cocaine Screen,Urine Negative ng/mL (Cutoff= 300); Opiate Screen,Urine Negative ng/mL (Cutoff=300); Phencyclidine Screen,Urine Negative ng/mL (Cutoff=25)
[2019-11-04 17:06] LABS: Creatinine,Urine 130 mg/dL; Protein/Creatinine Ratio,Urine 0.22 mg/mg (0.00-0.20)
[2019-11-04 18:37] LABS: Basophils % 0.3 %; Eosinophils # 0.1 K/mcL (0.0-0.6); Eosinophils % 1.1 %; Hematocrit 37.6 % (35.3-44.9); Hemoglobin 12.3 g/dL (11.5-15.4); Immature Granulocytes % 0.9 % (0-4); Lymphocytes % 19.6 %; Mean Corpuscular HGB Conc 32.7 g/dL (31.6-35.5); Mean Corpuscular Hemoglobin 30.4 pg (28.0-33.3); Mean Corpuscular Volume 92.8 fL (83.0-100.0); Mean Platelet Volume 10.1 fL (9.4-12.4); Monocytes # 0.8 K/mcL (0.0-1.3); Monocytes % 8.3 %; Platelet Count 264 K/mcL (140-400); Red Blood Count 4.05 M/mcL (3.82-4.97); Red Cell Distribution Width 13.1 % (11.5-14.5); Segmented Neutrophils % 69.8 %
[2019-11-04 18:54] LABS: Alanine Aminotransferase 14 Units/L (7-52); Aspartate Amino Transferase 18 Units/L (13-39); BUN/Creatinine Ratio 13 (6-26); Blood Urea Nitrogen 6 mg/dL (6-20); Lactate Dehydrogenase 208 Units/L (140-271); Uric Acid 4.7 mg/dL (2.3-7.6); eGFR For African Americans > 60 (> 60); eGFR For Non-African Americans > 60 (> 60)
== END | disposition home or self-care (01) ==
LOC: 1NENULAB
PROVIDERS: ADMIT Advanced Practice Midwife; ATTEND Advanced Practice Midwife

== ENCOUNTER 2019-11-09 14:07 | Inpatient (IN) ==
[~2019-11-09 14:07] MED LIST changes: +*HR* Nalbuphine 10 MG/ML AMPUL IVP PRN; -Betamethasone Acet/SodPhos 30 MG/5 ML VIAL IM SCH; -Epidural Premix (fent/bupiv) 110 ML EP SCH; +Famotidine 20 MG/2 ML VIAL IVP PRN; +Metoclopramide 10 MG/2 ML VIAL IVP PRN; -NIFEdipine 10 MG CAPSULE PO ONE; +Naloxone 0.4 MG/ML INJ IVP PRN; +Ondansetron 4 MG/2 ML VIAL IVP PRN; -Ringers Solution, Lactated 1,000 ML IVC ONE; -Ringers Solution, Lactated 1,000 ML IVC SCH; -Ringers Solution, Lactated 1,000 ML ONE
[2019-11-09] MEDS ORDERED: Ringers Solution, Lactated 1,000 ML IVC SCH (14:15)
[2019-11-09] MEDS ORDERED: EPHEDrine 50 MG/ML VIAL IVP PRN (14:56)
[2019-11-09] MEDS ORDERED: Epidural Premix (fent/bupiv) 110 ML EP SCH (15:00)
[2019-11-09 15:02] LABS: Amphetamine Screen,Urine Negative ng/mL (Cutoff=1000); Barbiturate Screen,Urine Negative ng/mL (Cutoff=200); Benzodiazepines Screen,Urine Negative ng/mL (Cutoff=200); Cannabinoid Screen,Urine Negative ng/mL (Cutoff = 50); Cocaine Screen,Urine Negative ng/mL (Cutoff= 300); Opiate Screen,Urine Negative ng/mL (Cutoff=300); Phencyclidine Screen,Urine Negative ng/mL (Cutoff=25); Protein/Creatinine Ratio,Urine 0.22 mg/mg (0.00-0.20)
[2019-11-09 15:10] LABS: Alanine Aminotransferase 15 Units/L (7-52); Aspartate Amino Transferase 17 Units/L (13-39); BUN/Creatinine Ratio 13 (6-26); Blood Urea Nitrogen 7 mg/dL (6-20); Lactate Dehydrogenase 172 Units/L (140-271); eGFR For African Americans > 60 (> 60); eGFR For Non-African Americans > 60 (> 60)
[2019-11-09 15:24] LABS: Basophils % 0.2 %; Eosinophils # 0.1 K/mcL (0.0-0.6); Eosinophils % 1.4 %; Hematocrit 38.5 % (35.3-44.9); Hemoglobin 12.7 g/dL (11.5-15.4); Lymphocytes # 1.7 K/mcL (0.6-4.6); Mean Corpuscular Hemoglobin 30.5 pg (28.0-33.3); Mean Corpuscular Volume 92.5 fL (83.0-100.0); Mean Platelet Volume 10.4 fL (9.4-12.4); Monocytes # 0.7 K/mcL (0.0-1.3); Monocytes % 6.5 %; Neutrophils # 7.4 K/mcL (1.6-8.9); Platelet Count 266 K/mcL (140-400); Red Blood Count 4.16 M/mcL (3.82-4.97); Segmented Neutrophils % 73.9 %; White Blood Count 10.1 K/mcL (4.3-11.1)
[2019-11-09] MEDS ORDERED: miSOPROStoL 25 MCG TABLET PO SCH (15:30)
[2019-11-09] MEDS ORDERED: *HR* FentaNYL (PF) 100 MCG/2 ML VIAL ONE (19:03)
[2019-11-09] MEDS ORDERED: Ropivacaine/PF 0.2% 20 ML VIAL ONE (19:03)
[2019-11-09] MEDS ORDERED: Oxytocin 20 units/ LR 1000 mL 20 UNIT/1,000 ML BAG IVC SCH (20:30)
[2019-11-10] MEDS ORDERED: Acetaminophen 325 MG TABLET PO PRN (02:25)
[2019-11-10] MEDS ORDERED: Rho Immune Globulin 1,500 UNIT SYRINGE IM PRN (02:25)
[2019-11-10] MEDS ORDERED: Oxytocin 20 units/ LR 1000 mL 20 UNIT/1,000 ML BAG IVC SCH (02:25)
[2019-11-10] MEDS ORDERED: Oxytocin 20 units/ LR 1000 mL 20 UNIT/1,000 ML BAG IVC ONE (02:25)
[2019-11-10] MEDS ORDERED: Measles/Mumps/Rubella Vacc 0.5 ML VIAL SQ PRN (02:25)
[2019-11-10] MEDS ORDERED: Benzocaine/Menthol 56 GM AEROSOL SPRAY TP PRN (02:48)
[2019-11-10] MEDS ORDERED: Benzocaine/Menthol 56 GM AEROSOL SPRAY TP ONE (02:50)
[2019-11-10] MEDS: Ibuprofen 600 MG TABLET PO PRN ×3 (02:53→20:29)
[2019-11-10 06:53] LABS: Basophils % 0.2 %; Eosinophils # 0.1 K/mcL (0.0-0.6); Eosinophils % 0.8 %; Hematocrit 34.1 % (35.3-44.9); Hemoglobin 11.5 g/dL (11.5-15.4); Immature Granulocytes % 0.6 % (0-4); Lymphocytes # 1.7 K/mcL (0.6-4.6); Lymphocytes % 13.7 %; Mean Corpuscular HGB Conc 33.7 g/dL (31.6-35.5); Monocytes # 0.9 K/mcL (0.0-1.3); Monocytes % 6.9 %; Neutrophils # 9.7 K/mcL (1.6-8.9); Platelet Count 239 K/mcL (140-400); Red Blood Count 3.83 M/mcL (3.82-4.97); Red Cell Distribution Width 13.1 % (11.5-14.5); Segmented Neutrophils % 77.8 %; White Blood Count 12.5 K/mcL (4.3-11.1)
[2019-11-10] MEDS: Prenatal Vit/FA 1 EACH TABLET PO SCH (07:42)
[2019-11-10] MEDS ORDERED: Lidocaine/EPI 1:100k 1% 30 ML VIAL INFILT ONE (15:26)
[2019-11-10] MEDS ORDERED: Etonogestrel 68 MG IMPLANT IL ONE (15:26)
[2019-11-11] MEDS: Ibuprofen 600 MG TABLET PO PRN (06:55)
[2019-11-11 07:48] VITALS: BP 154/96
[2019-11-11] MEDS: Prenatal Vit/FA 1 EACH TABLET PO SCH (08:24)
[2019-11-11] MEDS ORDERED: NIFEdipine XL (24 HR) 30 MG TAB.ER.24 PO SCH (10:51)
== END 2019-11-11 12:00 | disposition home or self-care (01) | DRG 807 ==
LOC: 1NENULAB → 1NENUOBS 11-10 02:08
PROVIDERS: ADMIT Advanced Practice Midwife; ATTEND Advanced Practice Midwife